=== PATIENT | female | born 1950 | race Caucasian/White ===

== ENCOUNTER 2020-06-18 11:22 | Inpatient (IN) | payer OTHER ==
[2020-06-18] MEDS ORDERED: VANCOMYCIN 1 GM in D5W (PRE-DOCKED) 1,000 MG/250 ML IVPB ONE (14:39)
[2020-06-18 14:54] LABS: BASO % 1.2 % (0-2.0); EOS % 1.8 % (0-4.5); HEMATOCRIT 29.5 % (32.4-45.2); HEMOGLOBIN 9.9 GM/dL (10.7-15.3); LYMPH % 35.6 % (8-40); MCH 30.1 pg (25.7-33.7); MCHC 33.5 g/dl (32.0-36.0); MEAN CELL VOLUME 89.7 fl (80-96); MEAN PLT VOLUME 9.6 fl (7.5-11.1); MONO % 9.6 % (3.8-10.2); NEUT % 51.8 % (42.8-82.8); PLATELET COUNT 405 K/MM3 (134-434); RBC 3.29 M/mm3 (3.60-5.2); RDW 16.2 % (11.6-15.6); WHITE BLOOD COUNT 12.6 K/mm3 (4.0-10.0)
[2020-06-18] MEDS ORDERED: VANCOMYCIN 1 GRAM (PRE-DOCKED) 1,000 MG/250 ML BAG IVPB ONE (14:57)
[2020-06-18 15:02] LABS: INR 1.08 (0.83-1.09); PROTHROMBIN TIME (PATIENT) 13.2 SEC (9.7-13.0)
[2020-06-18 15:04] LABS: ACTIVATED PTT 27.5 SECONDS (25.2-36.5)
[2020-06-18 15:13] LABS: ALBUMIN 3.8 g/dl (3.4-5.0)
[2020-06-18 15:14] LABS: CALCIUM 9.2 mg/dL (8.5-10.1)
[2020-06-18 15:18] LABS: CREATININE 0.8 mg/dL (0.55-1.3)
[2020-06-18 15:20] LABS: BILIRUBIN,TOTAL 1.2 mg/dL (0.2-1); TOT PROT 7.4 g/dl (6.4-8.2)
[2020-06-18] MEDS ORDERED: SODIUM CHLORIDE 0.9% 500 ML INFUS.BAG IV ONE (15:38)
[2020-06-18 21:00] LABS: EPI CELLS 10 /uL (0-25.1); HYALINE CASTS 1 /uL (0-3.1); PH,URINE 5.5 (5.0-8.0); URINE APPEARANCE CLEAR; URINE BACTERIA 2475 /uL (0-1359); URINE BILIRUBIN NEGATIVE (NEGATIVE); URINE COLOR YELLOW; URINE GLUCOSE (UA) NEGATIVE (NEGATIVE); URINE KETONE NEGATIVE (NEGATIVE); URINE LEUK ESTERASE 2+ (NEGATIVE); URINE NITRITE NEGATIVE (NEGATIVE); URINE PROTEIN TRACE (NEGATIVE); URINE RBC 19 /uL (0-23.9); URINE UROBILINOGEN 0.2 mg/dL (0.2-1.0); URINE WBC 188 /uL (0-25.8)
[2020-06-19] MEDS ORDERED: ACETAMINOPHEN 325 MG TABLET (FP) ONE (02:25)
[2020-06-19] MEDS: ACETAMINOPHEN 325 MG TABLET (FP) PO PRN ×3 (02:47→18:08)
[2020-06-19] MEDS: LEVOTHYROXINE NA 50 MCG TABLET (FP) PO SCH (06:31)
[2020-06-19] MEDS: PANTOPRAZOLE 40 MG TABLET PO SCH (06:31)
[2020-06-19] MEDS: INSULIN SLIDING SCALE (NOVOLOG) 1 VIAL SQ SCH ×4 (06:31→22:27)
[2020-06-19 07:20] LABS: HEMATOCRIT 29.5 % (32.4-45.2); MCH 29.9 pg (25.7-33.7); MCHC 33.7 g/dl (32.0-36.0); MEAN CELL VOLUME 88.7 fl (80-96); MEAN PLT VOLUME 8.9 fl (7.5-11.1); PLATELET COUNT 381 K/MM3 (134-434); RBC 3.33 M/mm3 (3.60-5.2); RDW 16.2 % (11.6-15.6); WHITE BLOOD COUNT 12.5 K/mm3 (4.0-10.0)
[2020-06-19 07:50] LABS: CALCIUM 9.3 mg/dL (8.5-10.1)
[2020-06-19 07:51] LABS: BLOOD UREA NITROGEN 12.2 mg/dL (7-18); MAGNESIUM 1.6 mg/dL (1.8-2.4)
[2020-06-19 07:54] LABS: CREATININE 0.8 mg/dL (0.55-1.3); PHOSPHOROUS 4.7 mg/dL (2.5-4.9)
[2020-06-19] MEDS ORDERED: PATIENT'S OWN MEDICATION (NON-FORMULARY) (Multivitamin 1 TAB) PO SCH (10:00)
[2020-06-19] MEDS ORDERED: PATIENT'S OWN MEDICATION (NON-FORMULARY) (Tizanidine Hcl 2 MG) PO SCH (10:00)
[2020-06-19] MEDS ORDERED: PANTOPRAZOLE SODIUM 40 MG PO SCH (10:00)
[2020-06-19] MEDS ORDERED: SYNTHROID PO SCH (10:00)
[2020-06-19] MEDS ORDERED: VANCOMYCIN 1 GM in D5W (PRE-DOCKED) 1,000 MG/250 ML IVPB SCH ×2 (10:00→17:00)
[2020-06-19] MEDS ORDERED: SENNOSIDES 8.6 MG PO SCH (10:00)
[2020-06-19] MEDS ORDERED: CEFTRIAXONE 1 GM in DEXTROSE 5%-WATER - 50 ML IVPB SCH (10:00)
[2020-06-19] MEDS ORDERED: MECLIZINE HCL 25 MG PO SCH (10:00)
[2020-06-19] MEDS ORDERED: VITAMIN C PO SCH (10:00)
[2020-06-19] MEDS ORDERED: ZINC 50 MG PO SCH (10:00)
[2020-06-19] MEDS ORDERED: DEXTROSE 5%-WATER - 50 ML IVPB ONE (10:19)
[2020-06-19] MEDS ORDERED: cefTRIAXone SODIUM 1 GM VIAL ONE (10:19)
[2020-06-19] MEDS: ZINC SULFATE 220 MG CAPSULE (FP) PO SCH (10:24)
[2020-06-19] MEDS: MULTIVITAMINS (DAILY MVI) TABLET (FP) PO SCH (10:24)
[2020-06-19] MEDS: ENOXAPARIN NA (PORCINE) 40 MG/0.4 ML DISP.SYRIN SQ SCH (10:24)
[2020-06-19] MEDS: MECLIZINE HCL 25 MG TABLET (FP) PO SCH (10:24)
[2020-06-19] MEDS: ASCORBIC ACID 500 MG TABLET (FP) PO SCH ×2 (10:24→22:25)
[2020-06-19] MEDS: TIZANIDINE HCL 2 MG TABLET PO SCH ×2 (11:38→22:25)
[2020-06-19] MEDS ORDERED: INSULIN (NOVOLOG) ASPART 100 UNITS/ML 10ML VIAL ONE ×2 (11:44→22:21)
[2020-06-19] MEDS: VANCOMYCIN 1 GRAM (PRE-DOCKED) 1,000 MG/250 ML BAG IVPB SCH (14:46)
[2020-06-19] MEDS ORDERED: traMADol HCL 50 MG TABLET PO ONE (21:04)
[2020-06-19] MEDS: ATORVASTATIN CA 40 MG TABLET (FP) PO SCH (22:25)
[2020-06-19] MEDS: SENNOSIDES 8.6MG TABLET (FP) PO SCH (22:25)
[2020-06-20] MEDS: VANCOMYCIN 1 GRAM (PRE-DOCKED) 1,000 MG/250 ML BAG IVPB SCH ×2 (03:04→15:34)
[2020-06-20] MEDS: INSULIN SLIDING SCALE (NOVOLOG) 1 VIAL SQ SCH ×4 (06:56→21:40)
[2020-06-20] MEDS: LEVOTHYROXINE NA 50 MCG TABLET (FP) PO SCH (06:56)
[2020-06-20] MEDS: PANTOPRAZOLE 40 MG TABLET PO SCH (06:56)
[2020-06-20] MEDS: ZINC SULFATE 220 MG CAPSULE (FP) PO SCH (10:16)
[2020-06-20] MEDS: ASCORBIC ACID 500 MG TABLET (FP) PO SCH ×2 (10:16→21:37)
[2020-06-20] MEDS: ENOXAPARIN NA (PORCINE) 40 MG/0.4 ML DISP.SYRIN SQ SCH (10:16)
[2020-06-20] MEDS: MECLIZINE HCL 25 MG TABLET (FP) PO SCH (10:16)
[2020-06-20] MEDS: TIZANIDINE HCL 2 MG TABLET PO SCH ×2 (10:16→21:37)
[2020-06-20] MEDS: MULTIVITAMINS (DAILY MVI) TABLET (FP) PO SCH (10:16)
[2020-06-20] MEDS ORDERED: BACITRACIN 15 GM TUBE TOPICAL OINTMENT TP SCH (11:30)
[2020-06-20] MEDS: POLYETHYLENE GLYCOL 3350 119 GM BTL PO SCH (11:35)
[2020-06-20] MEDS: MUPIROCIN 2% TOPICAL OINTMENT 22 GM TUBE TP SCH ×2 (12:32→21:36)
[2020-06-20] MEDS: NYSTATIN 100000 UNIT/GM TOPICAL OINTMENT 15 GM TUBE TP SCH ×2 (12:32→21:36)
[2020-06-20 13:06] LABS: BASO % 2.1 % (0-2.0); EOS % 2.5 % (0-4.5); HEMATOCRIT 30.2 % (32.4-45.2); HEMOGLOBIN 10.3 GM/dL (10.7-15.3); MCH 30.5 pg (25.7-33.7); MCHC 34.2 g/dl (32.0-36.0); MEAN CELL VOLUME 89.4 fl (80-96); MEAN PLT VOLUME 9.3 fl (7.5-11.1); MONO % 9.7 % (3.8-10.2); NEUT % 54.7 % (42.8-82.8); PLATELET COUNT 403 K/MM3 (134-434); RBC 3.38 M/mm3 (3.60-5.2); WHITE BLOOD COUNT 10.1 K/mm3 (4.0-10.0)
[2020-06-20 13:55] LABS: CALCIUM 9.6 mg/dL (8.5-10.1)
[2020-06-20 13:57] LABS: ALBUMIN 3.9 g/dl (3.4-5.0); BLOOD UREA NITROGEN 9.6 mg/dL (7-18)
[2020-06-20 14:01] LABS: BILIRUBIN,TOTAL 1.3 mg/dL (0.2-1); TOT PROT 7.6 g/dl (6.4-8.2)
[2020-06-20] MEDS: traMADol HCL 50 MG TABLET PO PRN (17:31)
[2020-06-20] MEDS: GABAPENTIN 300 MG CAPSULE PO SCH (21:37)
[2020-06-20] MEDS: SENNOSIDES 8.6MG TABLET (FP) PO SCH (21:37)
[2020-06-20] MEDS: ATORVASTATIN CA 40 MG TABLET (FP) PO SCH (21:37)
[2020-06-21] MEDS: VANCOMYCIN 1 GRAM (PRE-DOCKED) 1,000 MG/250 ML BAG IVPB SCH ×2 (01:50→15:40)
[2020-06-21] MEDS: LEVOTHYROXINE NA 50 MCG TABLET (FP) PO SCH (06:32)
[2020-06-21] MEDS: INSULIN SLIDING SCALE (NOVOLOG) 1 VIAL SQ SCH ×4 (06:32→22:35)
[2020-06-21] MEDS: PANTOPRAZOLE 40 MG TABLET PO SCH (06:32)
[2020-06-21] MEDS: GABAPENTIN 300 MG CAPSULE PO SCH ×3 (06:32→22:24)
[2020-06-21 07:29] LABS: BASO % 1.1 % (0-2.0); EOS % 4.5 % (0-4.5); HEMATOCRIT 27.8 % (32.4-45.2); HEMOGLOBIN 9.4 GM/dL (10.7-15.3); LYMPH % 37.5 % (8-40); MCH 29.8 pg (25.7-33.7); MCHC 33.9 g/dl (32.0-36.0); MEAN CELL VOLUME 87.9 fl (80-96); MEAN PLT VOLUME 9.3 fl (7.5-11.1); MONO % 12.4 % (3.8-10.2); NEUT % 44.5 % (42.8-82.8); PLATELET COUNT 358 K/MM3 (134-434); RBC 3.16 M/mm3 (3.60-5.2); RDW 15.8 % (11.6-15.6); WHITE BLOOD COUNT 9.3 K/mm3 (4.0-10.0)
[2020-06-21 08:14] LABS: ALBUMIN 3.6 g/dl (3.4-5.0); BLOOD UREA NITROGEN 7.9 mg/dL (7-18); CALCIUM 9.3 mg/dL (8.5-10.1)
[2020-06-21 08:17] LABS: CREATININE 0.8 mg/dL (0.55-1.3)
[2020-06-21 08:18] LABS: TOT PROT 6.8 g/dl (6.4-8.2)
[2020-06-21] MEDS: MECLIZINE HCL 25 MG TABLET (FP) PO SCH (11:01)
[2020-06-21] MEDS: ASCORBIC ACID 500 MG TABLET (FP) PO SCH ×2 (11:01→22:24)
[2020-06-21] MEDS: ZINC SULFATE 220 MG CAPSULE (FP) PO SCH (11:01)
[2020-06-21] MEDS: TIZANIDINE HCL 2 MG TABLET PO SCH ×2 (11:01→22:25)
[2020-06-21] MEDS: MULTIVITAMINS (DAILY MVI) TABLET (FP) PO SCH (11:02)
[2020-06-21] MEDS: MUPIROCIN 2% TOPICAL OINTMENT 22 GM TUBE TP SCH ×2 (11:02→22:26)
[2020-06-21] MEDS: ENOXAPARIN NA (PORCINE) 40 MG/0.4 ML DISP.SYRIN SQ SCH (11:02)
[2020-06-21] MEDS: NYSTATIN 100000 UNIT/GM TOPICAL OINTMENT 15 GM TUBE TP SCH ×2 (11:02→22:26)
[2020-06-21] MEDS: POLYETHYLENE GLYCOL 3350 119 GM BTL PO SCH (11:02)
[2020-06-21] MEDS: ACETAMINOPHEN 325 MG TABLET (FP) PO PRN (19:57)
[2020-06-21] MEDS ORDERED: PT OWN MED DRAWER 7, Y5N ONE (22:19)
[2020-06-21] MEDS: traMADol HCL 50 MG TABLET PO PRN (22:24)
[2020-06-21] MEDS: SENNOSIDES 8.6MG TABLET (FP) PO SCH (22:24)
[2020-06-21] MEDS: ATORVASTATIN CA 40 MG TABLET (FP) PO SCH (22:24)
[2020-06-22] MEDS: LEVOTHYROXINE NA 50 MCG TABLET (FP) PO SCH (06:21)
[2020-06-22] MEDS: GABAPENTIN 300 MG CAPSULE PO SCH ×3 (06:21→21:06)
[2020-06-22] MEDS: INSULIN SLIDING SCALE (NOVOLOG) 1 VIAL SQ SCH ×4 (06:21→21:01)
[2020-06-22] MEDS: PANTOPRAZOLE 40 MG TABLET PO SCH (06:31)
[2020-06-22 07:31] LABS: BASO % 2.2 % (0-2.0); EOS % 4.5 % (0-4.5); HEMATOCRIT 28.9 % (32.4-45.2); HEMOGLOBIN 9.7 GM/dL (10.7-15.3); LYMPH % 38.8 % (8-40); MCHC 33.4 g/dl (32.0-36.0); MEAN CELL VOLUME 89.7 fl (80-96); MEAN PLT VOLUME 9.2 fl (7.5-11.1); MONO % 9.8 % (3.8-10.2); NEUT % 44.7 % (42.8-82.8); PLATELET COUNT 376 K/MM3 (134-434); RBC 3.23 M/mm3 (3.60-5.2); RDW 16.3 % (11.6-15.6); WHITE BLOOD COUNT 11.1 K/mm3 (4.0-10.0)
[2020-06-22 07:45] LABS: CALCIUM 9.3 mg/dL (8.5-10.1)
[2020-06-22 07:46] LABS: ALBUMIN 3.6 g/dl (3.4-5.0)
[2020-06-22 07:49] LABS: CREATININE 1.1 mg/dL (0.55-1.3)
[2020-06-22 07:50] LABS: BILIRUBIN,TOTAL 1.6 mg/dL (0.2-1); TOT PROT 6.9 g/dl (6.4-8.2)
[2020-06-22] MEDS: MUPIROCIN 2% TOPICAL OINTMENT 22 GM TUBE TP SCH ×2 (10:27→21:07)
[2020-06-22] MEDS: NYSTATIN 100000 UNIT/GM TOPICAL OINTMENT 15 GM TUBE TP SCH ×2 (10:27→21:07)
[2020-06-22] MEDS: TIZANIDINE HCL 2 MG TABLET PO SCH ×2 (14:34→21:06)
[2020-06-22] MEDS: ZINC SULFATE 220 MG CAPSULE (FP) PO SCH (14:34)
[2020-06-22] MEDS: ASCORBIC ACID 500 MG TABLET (FP) PO SCH ×2 (14:34→21:06)
[2020-06-22] MEDS: MULTIVITAMINS (DAILY MVI) TABLET (FP) PO SCH (14:34)
[2020-06-22] MEDS: MECLIZINE HCL 25 MG TABLET (FP) PO SCH (14:34)
[2020-06-22] MEDS: POLYETHYLENE GLYCOL 3350 119 GM BTL PO SCH (14:39)
[2020-06-22] MEDS: VANCOMYCIN 1 GRAM (PRE-DOCKED) 1,000 MG/250 ML BAG IVPB SCH (15:40)
[2020-06-22] MEDS ORDERED: PT OWN MED DRAWER 7, Y5N ONE (20:56)
[2020-06-22] MEDS ORDERED: INSULIN (NOVOLOG) ASPART 100 UNITS/ML 10ML VIAL ONE (21:00)
[2020-06-22] MEDS: ATORVASTATIN CA 40 MG TABLET (FP) PO SCH (21:06)
[2020-06-22] MEDS: SENNOSIDES 8.6MG TABLET (FP) PO SCH (21:06)
[2020-06-22] MEDS: traMADol HCL 50 MG TABLET PO PRN (23:41)
[2020-06-23] MEDS ORDERED: MELATONIN 5 MG TABLETS PO ONE (00:03)
[2020-06-23] MEDS ORDERED: INSULIN (NOVOLOG) ASPART 100 UNITS/ML 10ML VIAL ONE ×2 (07:12→21:07)
[2020-06-23] MEDS: LEVOTHYROXINE NA 50 MCG TABLET (FP) PO SCH (07:15)
[2020-06-23] MEDS: PANTOPRAZOLE 40 MG TABLET PO SCH (07:16)
[2020-06-23] MEDS: GABAPENTIN 300 MG CAPSULE PO SCH ×3 (07:16→21:16)
[2020-06-23] MEDS: INSULIN SLIDING SCALE (NOVOLOG) 1 VIAL SQ SCH ×5 (07:17→21:17)
[2020-06-23 08:00] LABS: EOS % 4.2 % (0-4.5); HEMATOCRIT 27.5 % (32.4-45.2); HEMOGLOBIN 9.2 GM/dL (10.7-15.3); LYMPH % 32.1 % (8-40); MCH 29.7 pg (25.7-33.7); MCHC 33.5 g/dl (32.0-36.0); MEAN CELL VOLUME 88.7 fl (80-96); MEAN PLT VOLUME 9.6 fl (7.5-11.1); MONO % 9.2 % (3.8-10.2); NEUT % 52.5 % (42.8-82.8); PLATELET COUNT 364 K/MM3 (134-434); WHITE BLOOD COUNT 12.5 K/mm3 (4.0-10.0)
[2020-06-23 08:28] LABS: ALBUMIN 3.4 g/dl (3.4-5.0); BILIRUBIN,TOTAL 1.8 mg/dL (0.2-1); BLOOD UREA NITROGEN 12.8 mg/dL (7-18); TOT PROT 6.8 g/dl (6.4-8.2)
[2020-06-23 08:29] LABS: CALCIUM 9.2 mg/dL (8.5-10.1)
[2020-06-23] MEDS: ENOXAPARIN NA (PORCINE) 40 MG/0.4 ML DISP.SYRIN SQ SCH (09:16)
[2020-06-23] MEDS: MUPIROCIN 2% TOPICAL OINTMENT 22 GM TUBE TP SCH ×2 (09:16→21:15)
[2020-06-23] MEDS: NYSTATIN 100000 UNIT/GM TOPICAL OINTMENT 15 GM TUBE TP SCH ×2 (09:17→21:15)
[2020-06-23] MEDS: POLYETHYLENE GLYCOL 3350 119 GM BTL PO SCH (10:28)
[2020-06-23] MEDS: MULTIVITAMINS (DAILY MVI) TABLET (FP) PO SCH (10:30)
[2020-06-23] MEDS: ASCORBIC ACID 500 MG TABLET (FP) PO SCH ×2 (10:30→21:16)
[2020-06-23] MEDS: ZINC SULFATE 220 MG CAPSULE (FP) PO SCH (10:30)
[2020-06-23] MEDS: MECLIZINE HCL 25 MG TABLET (FP) PO SCH (10:30)
[2020-06-23] MEDS: TIZANIDINE HCL 2 MG TABLET PO SCH ×2 (10:32→21:16)
[2020-06-23] MEDS: ACETAMINOPHEN 325 MG TABLET (FP) PO PRN ×2 (12:05→21:23)
[2020-06-23] MEDS: VANCOMYCIN 1 GRAM (PRE-DOCKED) 1,000 MG/250 ML BAG IVPB SCH (13:51)
[2020-06-23] MEDS ORDERED: HEPARIN NA (PORCINE) 5,000 UNITS/ML 1ML VIAL ONE ×2 (14:59→15:17)
[2020-06-23] MEDS ORDERED: LIDOCAINE HCL 1%, 10 MG/ML (20ML VIAL) ONE (14:59)
[2020-06-23] MEDS ORDERED: PROPOFOL 20 ML ONE ×2 (15:30)
[2020-06-23] MEDS ORDERED: MIDAZOLAM HCL 2 MG/2 ML SINGLE DOSE VIAL ONE (15:30)
[2020-06-23] MEDS ORDERED: ceFAZolin SODIUM 1 GM VIAL ONE (16:29)
[2020-06-23] MEDS ORDERED: ceFAZolin SODIUM 1 GM VIAL IVPB ONE (16:30)
[2020-06-23] MEDS ORDERED: LIDOCAINE HCL 1%, 10 MG/ML (20ML VIAL) NR ONE ×2 (16:42)
[2020-06-23] MEDS ORDERED: PT OWN MED DRAWER 7, Y5N ONE (21:08)
[2020-06-23] MEDS: SENNOSIDES 8.6MG TABLET (FP) PO SCH (21:16)
[2020-06-23] MEDS: ATORVASTATIN CA 40 MG TABLET (FP) PO SCH (21:16)
[2020-06-24] MEDS: GABAPENTIN 300 MG CAPSULE PO SCH ×3 (05:41→21:16)
[2020-06-24] MEDS: LEVOTHYROXINE NA 50 MCG TABLET (FP) PO SCH (06:07)
[2020-06-24] MEDS: PANTOPRAZOLE 40 MG TABLET PO SCH (06:07)
[2020-06-24] MEDS: INSULIN SLIDING SCALE (NOVOLOG) 1 VIAL SQ SCH ×4 (06:08→21:24)
[2020-06-24 08:12] LABS: BASO % 1.2 % (0-2.0); EOS % 5.5 % (0-4.5); HEMATOCRIT 28.1 % (32.4-45.2); HEMOGLOBIN 9.4 GM/dL (10.7-15.3); LYMPH % 30.8 % (8-40); MCH 30.2 pg (25.7-33.7); MCHC 33.5 g/dl (32.0-36.0); MEAN PLT VOLUME 9.3 fl (7.5-11.1); NEUT % 50.5 % (42.8-82.8); PLATELET COUNT 359 K/MM3 (134-434); RBC 3.12 M/mm3 (3.60-5.2); RDW 16.2 % (11.6-15.6); WHITE BLOOD COUNT 9.6 K/mm3 (4.0-10.0)
[2020-06-24 08:21] LABS: ALBUMIN 3.2 g/dl (3.4-5.0); BLOOD UREA NITROGEN 9.9 mg/dL (7-18); CALCIUM 8.7 mg/dL (8.5-10.1)
[2020-06-24 08:24] LABS: CREATININE 0.9 mg/dL (0.55-1.3)
[2020-06-24 08:26] LABS: BILIRUBIN,TOTAL 1.7 mg/dL (0.2-1); TOT PROT 6.6 g/dl (6.4-8.2)
[2020-06-24] MEDS: MULTIVITAMINS (DAILY MVI) TABLET (FP) PO SCH (10:39)
[2020-06-24] MEDS: ZINC SULFATE 220 MG CAPSULE (FP) PO SCH (10:39)
[2020-06-24] MEDS: ASPIRIN COATED 81 MG TABLET.EC PO SCH (10:39)
[2020-06-24] MEDS: TIZANIDINE HCL 2 MG TABLET PO SCH ×2 (10:39→22:46)
[2020-06-24] MEDS: MECLIZINE HCL 25 MG TABLET (FP) PO SCH (10:39)
[2020-06-24] MEDS: ASCORBIC ACID 500 MG TABLET (FP) PO SCH ×2 (10:39→21:15)
[2020-06-24] MEDS: NYSTATIN 100000 UNIT/GM TOPICAL OINTMENT 15 GM TUBE TP SCH ×2 (10:39→21:21)
[2020-06-24] MEDS: POLYETHYLENE GLYCOL 3350 119 GM BTL PO SCH (10:40)
[2020-06-24] MEDS: MUPIROCIN 2% TOPICAL OINTMENT 22 GM TUBE TP SCH ×2 (10:40→21:21)
[2020-06-24] MEDS: ENOXAPARIN NA (PORCINE) 40 MG/0.4 ML DISP.SYRIN SQ SCH (10:40)
[2020-06-24] MEDS ORDERED: INSULIN (NOVOLOG) ASPART 100 UNITS/ML 10ML VIAL ONE ×2 (11:43→20:31)
[2020-06-24] MEDS: VANCOMYCIN 1 GRAM (PRE-DOCKED) 1,000 MG/250 ML BAG IVPB SCH (17:10)
[2020-06-24] MEDS: ATORVASTATIN CA 40 MG TABLET (FP) PO SCH (21:16)
[2020-06-24] MEDS: SENNOSIDES 8.6MG TABLET (FP) PO SCH (21:16)
[2020-06-24] MEDS: ACETAMINOPHEN 325 MG TABLET (FP) PO PRN (21:16)
[2020-06-25] MEDS ORDERED: INSULIN (NOVOLOG) ASPART 100 UNITS/ML 10ML VIAL ONE ×4 (04:58→21:19)
[2020-06-25] MEDS: GABAPENTIN 300 MG CAPSULE PO SCH ×3 (05:43→21:31)
[2020-06-25] MEDS: ACETAMINOPHEN 325 MG TABLET (FP) PO PRN ×2 (05:44→17:00)
[2020-06-25] MEDS ORDERED: PT OWN MED DRAWER 7, Y5N ONE (05:58)
[2020-06-25] MEDS: LEVOTHYROXINE NA 50 MCG TABLET (FP) PO SCH (06:08)
[2020-06-25] MEDS: PANTOPRAZOLE 40 MG TABLET PO SCH (06:08)
[2020-06-25] MEDS: INSULIN SLIDING SCALE (NOVOLOG) 1 VIAL SQ SCH ×4 (06:09→21:33)
[2020-06-25] MEDS: VANCOMYCIN 1 GRAM (PRE-DOCKED) 1,000 MG/250 ML BAG IVPB SCH (07:24)
[2020-06-25 07:59] LABS: EOS % 4.5 % (0-4.5); HEMATOCRIT 28.4 % (32.4-45.2); HEMOGLOBIN 9.6 GM/dL (10.7-15.3); LYMPH % 33.4 % (8-40); MCH 30.7 pg (25.7-33.7); MCHC 33.9 g/dl (32.0-36.0); MEAN CELL VOLUME 90.5 fl (80-96); MEAN PLT VOLUME 9.7 fl (7.5-11.1); MONO % 11.5 % (3.8-10.2); NEUT % 49.6 % (42.8-82.8); PLATELET COUNT 342 K/MM3 (134-434); RBC 3.13 M/mm3 (3.60-5.2); RDW 16.3 % (11.6-15.6); WHITE BLOOD COUNT 10.1 K/mm3 (4.0-10.0)
[2020-06-25 08:01] LABS: ALBUMIN 3.3 g/dl (3.4-5.0); BLOOD UREA NITROGEN 10.5 mg/dL (7-18)
[2020-06-25 08:06] LABS: BILIRUBIN,TOTAL 1.6 mg/dL (0.2-1); TOT PROT 6.6 g/dl (6.4-8.2)
[2020-06-25] MEDS: TIZANIDINE HCL 2 MG TABLET PO SCH ×2 (10:34→21:31)
[2020-06-25] MEDS: SULFAMETHOXAZOLE/TRIMETHOPRIM 800MG/160MG D.S. TABLET PO SCH ×2 (10:34→21:31)
[2020-06-25] MEDS: ASPIRIN COATED 81 MG TABLET.EC PO SCH (10:34)
[2020-06-25] MEDS: MULTIVITAMINS (DAILY MVI) TABLET (FP) PO SCH (10:34)
[2020-06-25] MEDS: MECLIZINE HCL 25 MG TABLET (FP) PO SCH (10:34)
[2020-06-25] MEDS: ZINC SULFATE 220 MG CAPSULE (FP) PO SCH (10:34)
[2020-06-25] MEDS: ASCORBIC ACID 500 MG TABLET (FP) PO SCH ×2 (10:34→21:31)
[2020-06-25] MEDS: ENOXAPARIN NA (PORCINE) 40 MG/0.4 ML DISP.SYRIN SQ SCH (10:35)
[2020-06-25] MEDS: MUPIROCIN 2% TOPICAL OINTMENT 22 GM TUBE TP SCH ×2 (10:35→21:35)
[2020-06-25] MEDS: POLYETHYLENE GLYCOL 3350 119 GM BTL PO SCH (10:35)
[2020-06-25] MEDS: NYSTATIN 100000 UNIT/GM TOPICAL OINTMENT 15 GM TUBE TP SCH ×2 (10:35→21:35)
[2020-06-25] MEDS: INSULIN (LEVEMIR) 100 UNITS/ML UNITS SQ SCH ×2 (10:35→21:32)
[2020-06-25] MEDS: RIVAROXABAN 2.5 MG TABLET PO SCH ×2 (14:30→21:36)
[2020-06-25 15:46] VITALS: BMI 31.4
[2020-06-25] MEDS: SENNOSIDES 8.6MG TABLET (FP) PO SCH (21:31)
[2020-06-25] MEDS: ATORVASTATIN CA 40 MG TABLET (FP) PO SCH (21:31)
[2020-06-26] MEDS: GABAPENTIN 300 MG CAPSULE PO SCH ×2 (06:14→14:58)
[2020-06-26] MEDS: PANTOPRAZOLE 40 MG TABLET PO SCH (06:14)
[2020-06-26] MEDS: LEVOTHYROXINE NA 50 MCG TABLET (FP) PO SCH (06:14)
[2020-06-26] MEDS: INSULIN (LEVEMIR) 100 UNITS/ML UNITS SQ SCH ×2 (06:15→22:08)
[2020-06-26] MEDS: INSULIN SLIDING SCALE (NOVOLOG) 1 VIAL SQ SCH ×5 (06:17→22:11)
[2020-06-26] MEDS: RIVAROXABAN 2.5 MG TABLET PO SCH ×2 (10:29→21:55)
[2020-06-26] MEDS: MUPIROCIN 2% TOPICAL OINTMENT 22 GM TUBE TP SCH ×2 (10:30→22:08)
[2020-06-26] MEDS: MECLIZINE HCL 25 MG TABLET (FP) PO SCH (10:30)
[2020-06-26] MEDS: ASPIRIN COATED 81 MG TABLET.EC PO SCH (10:30)
[2020-06-26] MEDS: TIZANIDINE HCL 2 MG TABLET PO SCH ×2 (10:30→21:55)
[2020-06-26] MEDS: ASCORBIC ACID 500 MG TABLET (FP) PO SCH ×2 (10:30→21:52)
[2020-06-26] MEDS: MULTIVITAMINS (DAILY MVI) TABLET (FP) PO SCH (10:30)
[2020-06-26] MEDS: ZINC SULFATE 220 MG CAPSULE (FP) PO SCH (10:30)
[2020-06-26] MEDS: SULFAMETHOXAZOLE/TRIMETHOPRIM 800MG/160MG D.S. TABLET PO SCH ×2 (10:30→21:53)
[2020-06-26] MEDS: POLYETHYLENE GLYCOL 3350 119 GM BTL PO SCH (10:30)
[2020-06-26] MEDS: NYSTATIN 100000 UNIT/GM TOPICAL OINTMENT 15 GM TUBE TP SCH ×2 (10:31→22:09)
[2020-06-26] MEDS ORDERED: traMADol HCL 50 MG TABLET PO PRN (17:16)
[2020-06-26] MEDS ORDERED: INSULIN (NOVOLOG) ASPART 100 UNITS/ML 10ML VIAL ONE (21:08)
[2020-06-26] MEDS: ATORVASTATIN CA 40 MG TABLET (FP) PO SCH (21:53)
[2020-06-26] MEDS: SENNOSIDES 8.6MG TABLET (FP) PO SCH (21:54)
[2020-06-26] MEDS ORDERED: GABAPENTIN 100 MG CAPSULE PO SCH (22:00)
[2020-06-27] MEDS ORDERED: PT OWN MED DRAWER 7, Y5N ONE (05:12)
[2020-06-27] MEDS: PANTOPRAZOLE 40 MG TABLET PO SCH (06:31)
[2020-06-27] MEDS: LEVOTHYROXINE NA 50 MCG TABLET (FP) PO SCH (06:31)
[2020-06-27] MEDS: INSULIN SLIDING SCALE (NOVOLOG) 1 VIAL SQ SCH ×2 (06:37→11:55)
[2020-06-27] MEDS: INSULIN (LEVEMIR) 100 UNITS/ML UNITS SQ SCH (06:39)
[2020-06-27] MEDS ORDERED: metFORMIN HCL 500 MG TABLET (FP) PO SCH (07:00)
[2020-06-27] MEDS ORDERED: GABAPENTIN 100 MG CAPSULE PO SCH (08:00)
[2020-06-27 08:56] VITALS: BP 140/66; PULSE 98; TEMP 98.8
[2020-06-27] MEDS: ZINC SULFATE 220 MG CAPSULE (FP) PO SCH (09:39)
[2020-06-27] MEDS: MULTIVITAMINS (DAILY MVI) TABLET (FP) PO SCH (09:39)
[2020-06-27] MEDS: ASPIRIN COATED 81 MG TABLET.EC PO SCH (09:39)
[2020-06-27] MEDS: MECLIZINE HCL 25 MG TABLET (FP) PO SCH (09:39)
[2020-06-27] MEDS: SULFAMETHOXAZOLE/TRIMETHOPRIM 800MG/160MG D.S. TABLET PO SCH (09:39)
[2020-06-27] MEDS: RIVAROXABAN 2.5 MG TABLET PO SCH (09:40)
[2020-06-27] MEDS: ASCORBIC ACID 500 MG TABLET (FP) PO SCH (09:40)
[2020-06-27] MEDS: TIZANIDINE HCL 2 MG TABLET PO SCH (09:40)
[2020-06-27] MEDS: NYSTATIN 100000 UNIT/GM TOPICAL OINTMENT 15 GM TUBE TP SCH (09:42)
[2020-06-27] MEDS: MUPIROCIN 2% TOPICAL OINTMENT 22 GM TUBE TP SCH (09:42)
[2020-06-27] MEDS: POLYETHYLENE GLYCOL 3350 119 GM BTL PO SCH (09:48)
== END 2020-06-27 12:45 | disposition home health service (06) | DRG 872 ==
LOC: JER 11:22 → JERBED 19:42 → J7W 06-19 05:00
PROVIDERS: ADMIT Internal Medicine; ATTEND Family Medicine
PROC: B41DZZZ Fluoroscopy of Aorta and Bilateral Lower Extremity Arteries (ICD-10-PCS; principal; 2020-06-23 17:00)
DX: A41.02 Sepsis due to Methicillin resistant Staphylococcus aureus (principal); M31.4 Aortic arch syndrome [Takayasu]; N39.0 Urinary tract infection, site not specified; J84.9 Interstitial pulmonary disease, unspecified; I25.10 Atherosclerotic heart disease of native coronary artery without angina pectoris; E78.5 Hyperlipidemia, unspecified; M47.9 Spondylosis, unspecified; K76.0 Fatty (change of) liver, not elsewhere classified; E03.9 Hypothyroidism, unspecified; R42 Dizziness and giddiness; I99.8 Other disorder of circulatory system; S30.92XA Unspecified superficial injury of abdominal wall, initial encounter; E11.65 Type 2 diabetes mellitus with hyperglycemia; K59.00 Constipation, unspecified; I10 Essential (primary) hypertension; B37.3 Candidiasis of vulva and vagina
CPT/HCPCS: 36415; 71045-TC-FY; 74177-TC; 75635-TC; 76000-TC-FY; 76705-TC; 80048; 80053; 80061; 81003; 82962; 83036; 83605; 83721; 83735; 84100; 84443; 85025; 85027; 85610; 85730; 87040; 87070; 87086; 87186; 87205; 93005; 93010; 93926-TC; 94760; 97116-GP; 97161-GP; 99285-25; C9803; G0463-25; G0480; J1644; Q9967; U0003